=== PATIENT | male | born 1945 | race Caucasian/White ===

== ENCOUNTER 2017-11-04 23:07 | Emergency (ER) | payer MEDICARE, BC ==
[~2017-11-04] VITALS: Ht 185.4 cm; Wt 91.4 kg
[2017-11-04 23:50] LABS: BASOPHILS # (AUTO) 0.02 x10^3/uL (0-0.1); BASOPHILS % (AUTO) 0 % (0-1); EOSINOPHILS # (AUTO) 0.07 x10^3/uL (0-0.4); EOSINOPHILS % (AUTO) 1 % (1-7); LYMPHOCYTES # (AUTO) 1.54 x10^3/uL (1-3.4); LYMPHOCYTES % (AUTO) 22 % (22-44); MD NO; MEAN CORPUSCULAR HEMOGLOBIN 32.1 pg (27.5-34.5); MEAN CORPUSCULAR HGB CONC 34.1 g/dL (33.2-36.2); MEAN CORPUSCULAR VOLUME 94.2 fL (81-97); MEAN PLATELET VOLUME 8.5 fL (7.4-10.4); MONOCYTES # (AUTO) 0.57 x10^3/uL (0.2-0.8); MONOCYTES % (AUTO) 8 % (2-9); NEUTROPHILS # (AUTO) 4.89 x10^3/uL (1.8-6.8); NEUTROPHILS % (AUTO) 69 % (42-75); PLATELET COUNT 270 x10^3/uL (130-400); RED CELL DISTRIBUTION WIDTH 13.1 % (9.4-14.8)
[2017-11-05] LABS: ALBUMIN 3.7 g/dL (3.4-5.0); ANION GAP 6 mmol/L (5-15); CALCIUM 8.7 mg/dL (8.5-10.1); CHLORIDE 108 mmol/L (98-107); CREATININE 0.98 mg/dL (0.7-1.3)
[2017-11-05 00:14] LABS: CULTURE INDICATED? NO; MICROSCOPIC NOT IND
[2017-11-05 00:53] VITALS: BP 135/87
== END 2017-11-05 00:54 | disposition home or self-care (01) ==
LOC: ED 11-05 00:34
DX: R33.9 Retention of urine, unspecified (principal)
CPT/HCPCS: 36415; 51702; 80048; 81003; 82040; 85025; 99285

== ENCOUNTER 2019-02-13 01:03 | Emergency (ER) | payer MEDICARE, BC ==
[~2019-02-13] VITALS: Ht 185.4 cm; Wt 87.0 kg
--- NOTE | 2019-02-13 01:32 | NUR ---
PT HERE FOR URINARY RETENTION X 4 HOURS. DEJA MCDUFFIE PLACED GRAFF AND WALKED UA TO LAB. 600 ML OF URINE OUT. TO SEE. CALL LIGHT IN REACH
--- NOTE | 2019-02-13 01:32 | NUR ---
Yeison rn:Per md verbal order, uretheral catheter applied for acute urinary retention. Approximately 600 ml of initial urine output observed. Md at bedside for assessment.
[2019-02-13 02:30] LABS: MICROSCOPIC AUTO
[2019-02-13 02:31] LABS: CULTURE INDICATED? NO
[2019-02-13 02:35] VITALS: BP 145/89
--- NOTE | 2019-02-13 02:54 | NUR ---
Patient given discharge instructions and they have confirmed that they understand the instructions. Patient ambulatory with steady gait.
== END 2019-02-13 02:55 | disposition home or self-care (01) ==
LOC: ED 02:06
DX: N40.1 Benign prostatic hyperplasia with lower urinary tract symptoms (principal); R33.8 Other retention of urine
CPT/HCPCS: 51702; 81001; 99283; 99284

== ENCOUNTER 2019-05-14 04:34 | Emergency (ER) | payer MEDICARE, BC ==
[~2019-05-14] VITALS: Ht 185.4 cm; Wt 89.0 kg
--- NOTE | 2019-05-14 05:25 | NUR ---
PT C/ANNELIESE ARREDONDO MD US BLADDER TO FIND FULL BLADDER, GRAFF CATH PLACED
[2019-05-14 05:27] LABS: BASOPHILS # (AUTO) 0.02 x10^3/uL (0-0.1); BASOPHILS % (AUTO) 0 % (0-1); EOSINOPHILS # (AUTO) 0.07 x10^3/uL (0-0.4); EOSINOPHILS % (AUTO) 1 % (1-7); LYMPHOCYTES % (AUTO) 33 % (22-44); MD NO; MEAN CORPUSCULAR HEMOGLOBIN 32.7 pg (27.5-34.5); MEAN CORPUSCULAR HGB CONC 34.2 g/dL (33.2-36.2); MEAN CORPUSCULAR VOLUME 95.6 fL (81-97); MEAN PLATELET VOLUME 8.9 fL (7.4-10.4); MONOCYTES # (AUTO) 0.58 x10^3/uL (0.2-0.8); MONOCYTES % (AUTO) 10 % (2-9); NEUTROPHILS # (AUTO) 3.28 x10^3/uL (1.8-6.8); NEUTROPHILS % (AUTO) 56 % (42-75); PLATELET COUNT 251 x10^3/uL (130-400); RED CELL DISTRIBUTION WIDTH 12.8 % (9.4-14.8)
[2019-05-14 05:31] LABS: ALBUMIN 3.7 g/dL (3.4-5.0); ANION GAP 5 mmol/L (5-15); CALCIUM 8.7 mg/dL (8.5-10.1); CHLORIDE 106 mmol/L (98-107)
[2019-05-14 05:33] LABS: MICROSCOPIC NOT IND
[2019-05-14 05:34] LABS: CULTURE INDICATED? NO
[2019-05-14 06:20] VITALS: BP 130/72
--- NOTE | 2019-05-14 06:29 | NUR ---
Patient/Caregiver given discharge instructions and they have confirmed that they understand the instructions. Patient ambulatory with steady gait.
== END 2019-05-14 05:08 ==
LOC: ED 05:01
DX: R33.9 Retention of urine, unspecified (principal)
CPT/HCPCS: 36415; 51702; 80048; 81003; 82040; 85025; 99284

== ENCOUNTER 2020-01-11 21:58 | Emergency (ER) | payer MEDICARE, BC ==
[~2020-01-11] VITALS: Ht 185.4 cm; Wt 91.8 kg
[2020-01-11 22:04] VITALS: BP 170/99
[2020-01-11 22:47] LABS: MICROSCOPIC INDICATED
--- NOTE | 2020-01-11 22:57 | NUR ---
BLADDER SCAN RECORDED 999ML
--- NOTE | 2020-01-12 00:27 | NUR ---
TOTAL OF 1600ML DRAINED FROM GRAFF
== END 2020-01-12 00:30 | disposition home or self-care (01) ==
LOC: ED 22:00
DX: N40.1 Benign prostatic hyperplasia with lower urinary tract symptoms (principal); R33.8 Other retention of urine; N30.00 Acute cystitis without hematuria
CPT/HCPCS: 51702; 81001; 87086; 99284

== ENCOUNTER 2020-09-21 20:52 | Emergency (ER) | payer MEDICARE, BC ==
[~2020-09-21] VITALS: Ht 185.4 cm; Wt 91.1 kg
--- NOTE | 2020-09-21 21:24 | NUR ---
TASK RN: PT. TO ROOM FROM LOBBY AT THIS TIME. INSTRUCTED TO CHANGE INTO GOWN.
--- NOTE | 2020-09-21 21:35 | NUR ---
BLADDER DISTENTION NOTED, ABD TENDER TO TOUCH. OKAY TO GRAFF PER ERP. GRAFF PLACED PER POLICY W 18F COUDE TIP. 1100ML CLEAR URINE OUT. PT REPORTS IMMEDIATE RELIEF OF PAIN. UA COLLECTED AND SENT TO LAB. BP/SPO2 MONITORING IN PLACE.
[2020-09-21 21:52] LABS: MICROSCOPIC NOT IND
[2020-09-21 21:56] LABS: BASOPHILS % (AUTO) 1 % (0-1); EOSINOPHILS % (AUTO) 0 % (1-7); LYMPHOCYTES % (AUTO) 18 % (22-44); MD NO; MEAN CORPUSCULAR HEMOGLOBIN 32.5 pg (27.5-34.5); MEAN CORPUSCULAR HGB CONC 34.4 g/dL (33.2-36.2); MEAN PLATELET VOLUME 8.4 fL (7.4-10.4); MONOCYTES % (AUTO) 7 % (2-9); NEUTROPHILS % (AUTO) 74 % (42-75); PLATELET COUNT 257 x10^3/uL (130-400); RED BLOOD COUNT 4.34 x10^6/uL (4.38-5.82); RED CELL DISTRIBUTION WIDTH 13.2 % (9.4-14.8)
[2020-09-21 22:05] LABS: ALBUMIN 3.8 g/dL (3.4-5.0); ANION GAP 4 mmol/L (5-15); CALCIUM 8.4 mg/dL (8.5-10.1); CHLORIDE 109 mmol/L (98-107); CREATININE 0.89 mg/dL (0.7-1.3)
[2020-09-21 23:07] VITALS: BP 157/79
--- NOTE | 2020-09-21 23:07 | NUR ---
CONTINUES TO DENY PAIN. EDUCATED ON LEG BAG AND LEG BAG IN PLACE. LARGE BAG IN BELONGINGS BAG FOR PATIENT TO TAKE WITH HIM. UP TO DRESS SELF.
--- NOTE | 2020-09-21 23:30 | NUR ---
DC EDUCATION PROVIDED, PT DEMONSTRATES UNDERSTANDING. PT AMBULATED STEADILY TO DC WITH RN
== END 2020-09-21 23:42 | disposition home or self-care (01) ==
LOC: ED 21:40
DX: R33.9 Retention of urine, unspecified (principal)
CPT/HCPCS: 36415; 51702; 80048; 81003; 82040; 85025; 99284

== ENCOUNTER 2021-01-04 06:45 | Emergency (ER) | payer MEDICARE, BC ==
[~2021-01-04] VITALS: Ht 185.4 cm; Wt 91.4 kg
[2021-01-04 06:47] VITALS: BP 162/81
--- NOTE | 2021-01-04 07:21 | NUR ---
PORTABLE [employer] CREW CHIEF: PT SIGNED REQUEST FOR DISCHARGE FORM
== END 2021-01-04 08:02 | disposition left against medical advice (07) ==
LOC: ED 07:00
DX: N39.9 Disorder of urinary system, unspecified (principal); Z53.21 Procedure and treatment not carried out due to patient leaving prior to being seen by health care provider